=== PATIENT | male | born 1965 | race Asian ===

== ENCOUNTER 2019-03-23 12:28 | Day surgery (SDC) | payer MEDICAID ==
[~2019-03-23] VITALS: Ht 160 cm; Wt 74.5 kg
[~2019-03-23 12:28] MED LIST: SODIUM CHLORIDE 0.9% 1,000 ML IV ONE
[2019-03-23] MEDS ORDERED: PROPOFOL 1% 20 ML VIAL IVP ONE (12:29)
[2019-03-23] MEDS ORDERED: FLEC50 PO (13:22)
[2019-03-23] MEDS ORDERED: CLOP75TA3 PO (13:22)
[2019-03-23] MEDS ORDERED: ASPI-1182 PO (13:22)
[2019-03-23] MEDS ORDERED: ATOR40TA28 PO (13:22)
[2019-03-23] MEDS ORDERED: PANT40TA25 PO (13:22)
[2019-03-23] MEDS ORDERED: METO50 PO (13:22)
[2019-03-23] MEDS ORDERED: LOSA50TA64 PO (13:22)
== END 2019-03-23 15:40 | disposition home or self-care (01) ==
LOC: SURGERY 12:28
PROVIDERS: ATTEND Student in an Organized Health Care Education/Training Program
DX: R07.9 Chest pain, unspecified (principal); K22.8 Other specified diseases of esophagus; K44.9 Diaphragmatic hernia without obstruction or gangrene; K29.50 Unspecified chronic gastritis without bleeding; K21.0 Gastro-esophageal reflux disease with esophagitis
CPT/HCPCS: 43239; 88305; 88312; 88313; 93005; C1769; J2704; J7030